=== PATIENT | male | born 1970 | race Caucasian/White ===

== ENCOUNTER 2020-07-22 00:37 | Outpatient (CLI) | payer BC, SELFPAY ==
[2020-07-23 13:40] LABS: SARS-CoV-2 RNA PCR Negative
== END 2020-07-22 00:38 | disposition home or self-care (01) ==
LOC: ANHCOVIDDT 00:38
PROVIDERS: PCP Internal Medicine; Visit Provider Internal Medicine Gastroenterology
DX: Z01.812 Encounter for preprocedural laboratory examination (principal); Z11.59 Encounter for screening for other viral diseases
CPT/HCPCS: 87635; C9803; U0003

== ENCOUNTER 2020-07-25 01:15 | Day surgery (SDC) | payer BC, SELFPAY ==
[2020-07-20 16:05] VITALS: BMI 25.7
[2020-07-25 09:02] VITALS: BP 120/80; PULSE 69; RESP 20; TEMP 36.8; O2SAT 98; BMI 25.6
[2020-07-25] MEDS: LACTATED RINGERS 1,000 ML 150 ML IV CONT (09:16)
--- NOTE | 2020-07-25 10:00 | WPDANESEPPF ---
Anes - Initial Pre Proc Eval Procedure: Operation Date: 07/25/20 10:00 Proposed Procedures p Screening Colonoscopy - Олег Grullon MD Date/Time: 07/25/20 10:00 Surgeon: Олег Grullon MD Pre Op Diagnosis: Neoplasm Screening Patient Data Age: 50 Gender: M Height: 6 ft Weight: 85.8 kg Last Vital Signs Temp 98.2 F 07/25/20 09:02 Pulse 69 07/25/20 09:02 Resp 20 07/25/20 09:02 BP 120/80 07/25/20 09:02 Pulse Ox 98 07/25/20 09:02 Allergies Allergy/AdvReac Type Severity Reaction Status Date / Time No Known Allergies Allergy Unknown Verified 07/25/20 09:01 Home Medications Medication Instructions Recorded Confirmed Type cyclobenzaprine 10 mg tablet 10 mg PO BID PRN tablet 04/11/20 07/20/20 History mesalamine 1.2 gram tablet,delayed 3.6 gm PO DAILY 04/11/20 07/20/20 History release sodium phosphates 19 gram-7 118 ml RECTAL DAILY ml 04/11/20 07/20/20 History gram/118 mL enema Patient hx anesthesia problems: none Family hx anesthesia problems: none PMFSH Social History Social History Smoking status: Current some day smoker Tobacco type: cigarettes Alcohol intake: never Substance use: never Substance use type: does not use Living arrangements: alone Spiritual care concerns: No Anes - Eval Final PreProcedure Day of Procedure 07/25/20 10:00 Patient weight: normal Heart: regular rate and rhythm Lungs: clear to auscultation Airway: Mallampati scale class II Neurological: alert and oriented Last oral intake: >/= 8 hours ASA classification: II Emergent: no Anesthetic plan: proceed Anesthesia type and monitoring: general GIVS and standard monitoring Informed Consent: The patient's anesthetic plan and its attendant risks and benefits were discussed with the patient/family/POA. Questions were solicited and answers provided to the satisfaction of the patient/family/POA.
--- NOTE | 2020-07-25 10:26 | P.HP_ITS ---
History of Present Illness History of Present Illness Consent: Risks, benefits, and alternatives have been discussed and questions answered. Patient agrees to proceed with procedure. Chief complaint: Neoplasm Screening Narrative: Juan Mendez Jr. is a 50 year old W male undergoing screening colonoscopy secondary to a greater than 10 year history of left-sided ulcerative colitis. Last colonoscopy was 3 years ago. Patient is presently asymptomatic does have some intermittent left-sided abdominal discomfort. No recent rectal bleeding. [facility], [facility] Past Medical History Medical History Colitis Headache, migraine Sciatica Surgical History Surgical History Hemorrhoid removed History of elbow surgery Family History Family History Father Family history of ulcerative colitis Mother Family history of irritable bowel syndrome Other Diabetes mellitus Social History Social History Smoking status: Current some day smoker Tobacco type: cigarettes Alcohol intake: never Substance use: never Substance use type: does not use Living arrangements: alone Spiritual care concerns: No Meds Home Medications and Allergies Home Medications Medication Instructions Recorded Confirmed Type cyclobenzaprine 10 mg tablet 10 mg PO BID PRN tablet 04/11/20 07/20/20 History mesalamine 1.2 gram tablet,delayed 3.6 gm PO DAILY 04/11/20 07/20/20 History release sodium phosphates 19 gram-7 118 ml RECTAL DAILY ml 04/11/20 07/20/20 History gram/118 mL enema Allergies Allergy/AdvReac Type Severity Reaction Status Date / Time No Known Allergies Allergy Unknown Verified 07/25/20 09:01 Vital Signs Vital Signs - 24 hr 07/25/20 09:02 Temperature 36.8 C Pulse Rate 69 Respiratory Rate 20 Blood Pressure 120/80 Pulse Oximetry 98 Exam Const: Orientation/consciousness: patient oriented x3 Resp: Auscultation: clear to auscultation bilaterally Cardio: Rate: regular rate Rhythm: regular rhythm Heart sounds: no murmurs GI: GI Palp: Yes Soft to palpation, No Tenderness to palpation present (GI), Yes No hepatosplenomegaly present and No Palpable mass present Auscultation: normal bowel sounds Neuro: General: patient oriented x3 and no focal motor deficits Extrem: General: no pedal edema Assessment and Plan Additional Plan Screening colonoscopy secondary to a greater than 10 year history of left- sided ulcerative colitis
[2020-07-25] MEDS: SIMETHICONE ORAL SUSPENSION 20 MG/0.3 ML 30 ML BOTTLE 0.6 ML IRRIGATION (11:04)
[2020-07-25 11:17] VITALS: BP 93/57; PULSE 61; RESP 17; O2SAT 96
[2020-07-25 11:27] VITALS: BP 104/76; PULSE 55; RESP 17; O2SAT 97
[2020-07-25 11:37] VITALS: BP 95/61; PULSE 56; RESP 17; O2SAT 99
[2020-07-25 11:47] VITALS: BP 102/68; PULSE 57; RESP 17; O2SAT 99
== END 2020-07-25 12:01 | disposition home or self-care (01) ==
PROVIDERS: PCP Internal Medicine; Visit Provider Internal Medicine Gastroenterology
PROC: 0DJD8ZZ Inspection of Lower Intestinal Tract, Via Natural or Artificial Opening Endoscopic (ICD-10-PCS; CPT 45378; principal; 2020-07-25 10:00)
DX: K52.9 Noninfective gastroenteritis and colitis, unspecified (principal); K62.89 Other specified diseases of anus and rectum; Z83.79 Family history of other diseases of the digestive system; G43.909 Migraine, unspecified, not intractable, without status migrainosus; F17.210 Nicotine dependence, cigarettes, uncomplicated; Z79.899 Other long term (current) drug therapy
CPT/HCPCS: 45380; 88305; J2704; J7120